=== PATIENT | female | born 1980 | race Hispanic/Latino ===

== ENCOUNTER 2019-05-11 08:44 | Emergency (ER) | payer OTHER ==
[~2019-05-11] VITALS: Ht 149.9 cm; Wt 86.2 kg
--- OUTSIDE RECORDS SUMMARY | 2019-05-11 08:47 | XMS REPORT ---
Author Author [facility] Address Unknown Phone Unavailable Care Team Providers Care Oral Hygienist Name Role Phone ANDREY ARAYA Unavailable Unavailable Problems This patient has no known problems. Allergies, Adverse Reactions, Alerts This patient has no known allergies or adverse reactions. Medications This patient has no known medications. Encounters Start Date/Time End Date/Time Encounter Type Admission Type Attending [facility] Facility Care Department Encounter ID 2019-01-26 16:27:00 2019-01-26 16:27:00 Emergency E [id number] 2018-12-03 14:56:00 2018-12-03 14:56:00 Emergency E [id number] Results Test Description Test Time Test Comments Text Results Atomic Results Result Comments TISSUE EXAM 2019-03-06 12:52:00 Surgical Pathology Report Case: [id number] Authorizing Provider: Aditya Araya, Collected: 02/27/2019 1023 MD Ordering Location: [facility] PERI[facility] Received: 02/27/2019 1055 SERVICES Pathologist: Armin Moore MD Specimen: Gallbladder, GALLBLADDER PART A GALLBLADDER, CHOLECYSTECTOMY:CHRONIC CHOLECYSTITIS.CHOLELITHIASIS. Signing Pathologist Direct Phone Line: [phone] signed by Armin Moore MD on 03/06/2019 at 12:52 [id number] cholecystitisGallbladder Received in formalin labeled with the patient's name, accession number and "gallbladder" is a previously disrupted, 6 x 2 x 1 cm gallbladder specimen with attached cystic duct measuring 0.5 cm in length, 0.7 cm in diameter. Multiple calculi which are davenport-yellow and multifaceted are identified within the gallbladder specimen within the container measuring roughly 4 x 3 x 1 cm in aggregate. A stone is lodged within the cystic duct. The serosal surface is davenport and fibrotic. The specimen is serially sectioned to reveal wall thickness of up to 0.4 cm. The mucosal surface is davenport and fibrotic. No discrete lesions are identified. The cystic duct margin is submitted in cassettes A1. [employer] sections of gallbladder wall are submitted in cassette C. SB/bc PERFORMED.[facility], Department of Pathology, [address] [place] [id number], [facility] of [facility], [address] [place] [id number], [facility], [facility] of [facility], [address] [place] [id number], RAD, CHEST, 1 VIEW, NON DEPT 2019-02-28 08:52:00 Daily 4 am portablesReason for exam:->atelectasisIs the patient ?->NoShould this be performed at the bedside?->Yes FINAL REPORT CHEST AP PORTABLE History provided: Atelectasis Comparison studies: None Heart size normal. Mild basilar platelike atelectasis. Lungs otherwise grossly clear, and vascularity normal. Signed: Lenin Patel MDReport Verified Date/Time: 02/28/2019 08:52:33 Reading Location: [facility] Diagnostic Imaging Reading Room - [facility] 1310.12 TIC FUNCTION PANEL 2019-02-28 04:31:00 TOTAL PROTEIN (BEAKER) (test ylwj=445) 6.4 gm/dL 6.0-8.3 ALBUMIN (BEAKER) (test ujbq=6422) 3.4 g/dL 3.5-5.0 BILIRUBIN TOTAL (BEAKER) (test rkux=663) 0.3 mg/dL 0.2-1.2 BILIRUBIN DIRECT (BEAKER) (test unzd=866) 0.2 mg/dL 0.1-0.5 ALKALINE PHOSPHATASE (BEAKER) (test ikcf=552) 67 U/L 40-150 AST (SGOT) (BEAKER) (test owyc=246) 38 U/L 5-34 ALT (SGPT) (BEAKER) (test bkmt=023) 33 U/L 6-55 BASIC METABOLIC [id number] 04:31:00* Test Item Value Reference Range Comments SODIUM (BEAKER) (test lfow=578) 139 meq/L 136-145 POTASSIUM (BEAKER) (test sewi=192) 3.9 meq/L 3.5-5.1 CHLORIDE (BEAKER) (test dvlm=971) 106 meq/L 98-107 CO2 (BEAKER) (test sigh=557) 27 meq/L 22-29 BLOOD UREA NITROGEN (BEAKER) (test rkrb=784) 6 mg/dL 7-21 CREATININE (BEAKER) (test byka=626) 0.69 mg/dL 0.57-1.25 GLUCOSE RANDOM (BEAKER) (test pxdz=883) 109 mg/dL 70-105 CALCIUM (BEAKER) (test dfdq=646) 8.8 mg/dL 8.4-10.2 EGFR (BEAKER) (test ntxi=5021) 94 mL/min/1.73 sq m ESTIMATED GFR IS NOT ACCURATE CREATININE CLEARANCE IN PREDICTING GLOMERULAR FILTRATION RATE. ESTIMATED GFR IS NOT APPLICABLE FOR DIALYSIS PATIENTS. CBC (HEMOGRAM ONLY)2019-02-28 04:22:00* Test Item Value Reference Range Comments WHITE BLOOD CELL COUNT (BEAKER) (test acjr=338) 13.3 K/ L 3.5-10.5 RED BLOOD CELL COUNT (BEAKER) (test ufpz=331) 4.29 M/ L 3.93-5.22 HEMOGLOBIN (BEAKER) (test igio=582) 12.6 GM/DL 11.2-15.7 HEMATOCRIT (BEAKER) (test jyvm=901) 38.5 % 34.1-44.9 MEAN CORPUSCULAR VOLUME (BEAKER) (test fnez=183) 89.7 fL 79.4-94.8 MEAN CORPUSCULAR HEMOGLOBIN (BEAKER) (test vltt=591) 29.4 pg 25.6-32.2 MEAN CORPUSCULAR HEMOGLOBIN CONC (BEAKER) (test gemk=548) 32.7 GM/DL 32.2-35.5 RED CELL DISTRIBUTION WIDTH (BEAKER) (test eijz=690) 12.8 % 11.7-14.4 PLATELET COUNT (BEAKER) (test jxgj=226) 281 K/CU MM 150-450 MEAN PLATELET VOLUME (BEAKER) (test tuxh=121) 10.4 fL 9.4-12.3 NUCLEATED RED BLOOD CELLS (BEAKER) (test ojqx=123) 0 /100 WBC 0-0 [id number] 18:33:00* Test Item Value Reference Range Comments SODIUM (BEAKER) (test qncx=649) 141 meq/L 136-145 POTASSIUM (BEAKER) (test rbfr=912) 3.8 meq/L 3.5-5.1 CHLORIDE (BEAKER) (test dmid=262) 105 meq/L 98-107 CO2 (BEAKER) (test ayfp=408) 29 meq/L 22-29 BUN AND [id number] 18:33:00* Test Item Value Reference Range Comments BLOOD UREA NITROGEN (BEAKER) (test lqlg=217) 10 mg/dL 7-21 CREATININE (BEAKER) (test sbkg=933) 0.77 mg/dL 0.57-1.25 EGFR (BEAKER) (test uuap=0180) 83 mL/min/1.73 sq m ESTIMATED GFR IS NOT ACCURATE CREATININE CLEARANCE IN PREDICTING GLOMERULAR FILTRATION RATE. ESTIMATED GFR IS NOT APPLICABLE FOR DIALYSIS PATIENTS. [id number] 18:08:00* Test Item Value Reference Range Comments HEMOGLOBIN (BEAKER) (test gbpx=061) 14.8 GM/DL 11.2-15.7 XR Chest 2 [id number] 08:21:28Patient: NILAM RUIZ Date/Time06/27/2018 08:09 CDTReason for ExamasthmaReportChest 2 views 06/27/2018 8:21 AMCLINICAL HISTORY: AsthmaCOMPARISON: None availableLOCATION: [id number]:The lungs are clear.Cardiomediastinal contours are within normal limits.The central pulmonary vasculature is not engorged.The visualized skeleton is intact.IMPRESSION:No acute radiographic abnormalities. Final Dictated by: MD Chavez Timothy JDictated DT/TM: 06/27/2018 8:21 amSigned by: MD Chavez Timothy JSigned (Electronic Signature): 06/27/2018 8:21 am
[2019-05-11] MEDS ORDERED: METHYLPREDNISOLONE SOD SUCC 125 MG/2ML VIAL IV STA (08:51)
[2019-05-11] MEDS ORDERED: ALBUTEROL SULF 0.083% NEB SOLN 3 ML NEB NEB STA ×2 (08:51→09:32)
[2019-05-11] MEDS ORDERED: IPRATROPIUM BROMIDE 0.02% 2.5 ML NEB NEB ONE ×2 (09:00→09:45)
[2019-05-11] MEDS ORDERED: MAGNESIUM SULF 1GRAM/DEXTROSE 100 ML IV ONE (09:15)
--- NOTE | 2019-05-11 09:24 | Diagnostic Imaging Report ---
Chest, portable AP view History: Shortness of breath, wheezing Comparison: No comparisons available for review IMPRESSION: The heart is within normal limits of size. The mediastinal and hilar contours are unremarkable. No focal consolidation, pleural effusion, or pneumothorax. No acute osseous abnormalities. Signed by: Carlos Salazar MD on 05/11/2019 9:21 AM
[2019-05-11 09:25] LABS: BASOPHILS # (AUTO) 0.1 (0.0-0.1); BASOPHILS % 0.7 % (0.0-1.0); EOSINOPHILS # (AUTO) 0.6 (0.0-0.4); EOSINOPHILS % 6.9 % (0.0-6.0); HEMATOCRIT 44.7 % (34.2-44.1); HEMOGLOBIN 14.1 g/dL (12.0-16.0); LYMPHOCYTES # (AUTO) 2.7 (1.0-3.2); LYMPHOCYTES % 30.1 % (18.0-39.1); MEAN CORPUSCULAR HEMOGLOBIN 29.6 pg (28-32); MEAN CORPUSCULAR HGB CONC 31.5 g/dL (31-35); MEAN CORPUSCULAR VOLUME 93.7 fL (81-99); MONOCYTES # (AUTO) 0.6 (0.2-0.8); MONOCYTES % 6.4 % (4.4-11.3); NEUTROPHILS # (AUTO) 4.9 (2.1-6.9); NEUTROPHILS % 55.2 % (38.7-80.0); PLATELET COUNT 285 x10e3/uL (140-360); RED BLOOD COUNT 4.77 x10e6/uL (3.6-5.1); RED CELL DISTRIBUTION WIDTH 13.1 % (11.7-14.4)
[2019-05-11 09:37] LABS: STREPTOCOCCUS GRP A ANTIGEN NEGATIVE (NEGATIVE)
[2019-05-11 09:40] LABS: CLARITY,URINE SL CLOUDY (CLEAR); COLOR,URINE YELLOW (YELLOW)
[2019-05-11 09:41] LABS: BILIRUBIN,URINE NEGATIVE (NEGATIVE); KETONES,URINE NEGATIVE (NEGATIVE); LEUKOCYTE ESTERASE ,URINE TRACE (NEGATIVE); NITRITE,URINE NEGATIVE (NEGATIVE); PROTEIN,URINE DIPSTICK NEGATIVE (NEGATIVE); URINE UROBILINOGEN 0.2 mg/dL (0.2 - 1)
[2019-05-11] MEDS ORDERED: DEXAMETHASONE SOD PHOS INJ 4 MG/ML VIAL NEB ONE (09:45)
[2019-05-11] MEDS ORDERED: ALBUTEROL SULF 0.5% NEB SOLN 20 ML BTL ONE (09:46)
[2019-05-11] MEDS ORDERED: ALBUTEROL/IPRATROPIUM 3 ML NEB ONE ×2 (09:47)
[2019-05-11 09:48] LABS: INFLUENZAE A&B ANTIGEN (RAPID) NEGATIVE (NEGATIVE)
[2019-05-11 09:51] LABS: BACTERIA,URINE FEW /HPF; EPITHELIAL CELLS,URINE MANY /LPF; RBC,URINE 0-5 /HPF (0-5)
[2019-05-11 09:53] LABS: ALANINE AMINOTRANSFERASE 23 IU/L (0-55); ALBUMIN 3.6 g/dL (3.5-5.0); ALBUMIN/GLOBULIN RATIO 0.9 (0.8-2.0); ALKALINE PHOSPHATASE 73 IU/L (40-150); ANION GAP 12.9 mmol/L (8-16); BLOOD UREA NITROGEN 10 mg/dL (7-26); BUN/CREATININE RATIO 13 (6-25); CALCIUM 9.3 mg/dL (8.4-10.2); CARBON DIOXIDE 26 mmol/L (22-29); CHLORIDE 108 mmol/L (98-107); CREATININE, SERUM 0.75 mg/dL (0.57-1.11); EST GLOMERULAR FILTRATION RATE > 60 ML/MIN (60-); GLUCOSE 113 mg/dL (74-118); MAGNESIUM 1.9 MG/DL (1.3-2.1); POTASSIUM 3.9 mmol/L (3.5-5.1); SODIUM 143 mmol/L (136-145)
[2019-05-11 10:39] LABS: PREGNANCY TEST, URINE NEGATIVE (NEGATIVE)
[2019-05-11 11:04] VITALS: BP 122/81
[2019-05-11] MEDS ORDERED: KETOROLAC TROMETHAMINE 30 MG/ML VIAL IV STA (11:20)
== END 2019-05-11 11:32 | disposition home or self-care (01) ==
LOC: ER 08:44
DX: R06.00 Dyspnea, unspecified (principal); J45.21 Mild intermittent asthma with (acute) exacerbation
CPT/HCPCS: 36415; 71045; 80053; 81001; 81025; 83518; 83735; 85025; 87070; 87086; 87400; 99284; J1885; J2930; J3475; J1100

== ENCOUNTER 2020-02-24 07:32 | Emergency (ER) | payer OTHER ==
[~2020-02-24] VITALS: Ht 149.9 cm; Wt 86.2 kg
[2020-02-24] MEDS ORDERED: IBUPROFEN 600 MG TAB PO STA (07:40)
== END 2020-02-24 09:28 | disposition home or self-care (01) ==
LOC: ER 07:46
DX: S92.531A Displaced fracture of distal phalanx of right lesser toe(s), initial encounter for closed fracture (principal); W22.09XA Striking against other stationary object, initial encounter; Y92.008 Other place in unspecified non-institutional (private) residence as the place of occurrence of the external cause; J45.909 Unspecified asthma, uncomplicated
CPT/HCPCS: 99284

== ENCOUNTER 2020-07-27 16:59 | Emergency (ER) | payer BC, OTHER ==
[~2020-07-27] VITALS: Ht 149.9 cm; Wt 86.2 kg
[2020-07-27] MEDS ORDERED: IBUPROFEN 600 MG TAB PO STA (18:36)
[2020-07-27] MEDS ORDERED: IBUPROFEN 600 MG TAB ONE (18:47)
== END 2020-07-27 18:48 | disposition home or self-care (01) ==
LOC: ER 17:25
DX: S93.401A Sprain of unspecified ligament of right ankle, initial encounter (principal); X50.1XXA Overexertion from prolonged static or awkward postures, initial encounter; Y93.01 Activity, walking, marching and hiking; Y92.008 Other place in unspecified non-institutional (private) residence as the place of occurrence of the external cause; J45.909 Unspecified asthma, uncomplicated
CPT/HCPCS: 99283